=== PATIENT | male | born 1955 | race Caucasian/White ===

== ENCOUNTER 2020-04-24 17:25 | Emergency (ER) | payer OTHER ==
[~2020-04-24] VITALS: Ht 180.3 cm; Wt 88.9 kg
[2020-04-24 19:36] LABS: Basophils # (auto) 0.1 10 ^3/uL (0-0.2); Basophils % (auto) 0.6 % (0.0-2.0); Eosinophils # (auto) 0.1 10 ^3/uL (0-0.8); Eosinophils % (auto) 1.1 % (0.0-7.0); Hematocrit 46.3 % (41.0-53.0); Lymphocytes # (auto) 2.5 10 ^3/uL (0.4-5.4); Lymphocytes % (auto) 20.8 % (10.0-50.0); Mean Corpuscular Hemoglobin 30.8 pg (28.0-32.0); Mean Corpuscular Hgb Conc. 34.7 g/dL (32.0-36.0); Mean Corpuscular Volume 88.8 fL (80.0-100.0); Monocytes % (auto) 8.3 % (0.0-12.0); Neutrophils # (auto) 8.3 10 ^3/uL (1.6-8.6); Neutrophils % (auto) 69.2 % (37.0-80.0); Nucleated Red Blood Cells % 0.2 %; Platelet Count (auto) 226 10^3/uL (140-450); Red Blood Cells 5.21 10^6/uL (4.5-5.90); Red Cell Distribution Width 13.4 % (11.8-14.3)
[2020-04-24 20:06] LABS: Chloride 108 mmol/L (98-107); Sodium 139 mmol/L (136-145)
[2020-04-24 20:16] LABS: Alanine Aminotransferase 25 U/L (16-61); Albumin 3.6 g/dL (3.4-5.0); Alkaline Phosphatase 114 U/L (45-117); Anion Gap 2 (5-15); Aspartate Aminotransferase 19 U/L (15-37); BUN/Creatinine Ratio 18.9; Bilirubin, Total 0.3 mg/dL (0.2-1.0); Blood Urea Nitrogen 31 mg/dL (7-18); Calcium 8.5 mg/dL (8.5-10.1); Carbon Dioxide 29 mmol/L (21-32); GFR African American 55 mL/min; GFR Non-African American 45 mL/min; Glucose 108 mg/dL (74-106); Total Protein 7.6 g/dL (6.4-8.2)
[2020-04-25 05:30] VITALS: BP 102/69
[2020-04-25] MEDS ORDERED: FUROSEMIDE 20 MG/2 ML VIAL IV ONE (08:00)
[2020-04-25] MEDS ORDERED: FUROSEMIDE 40 MG TAB ONE (08:11)
[2020-04-25] MEDS ORDERED: FUROSEMIDE 20 MG TAB PO ONE (08:15)
[2020-04-25 08:19] LABS: Urine Bacteria NONE SEEN /hpf (None Seen); Urine Blood Negative /uL (Negative); Urine Specific Gravity 1.029 (1.001-1.035); Urine WBC <1 /hpf (0 - 3)
== END 2020-04-25 08:23 | disposition home or self-care (01) ==
LOC: EDBD 17:28 → ER 17:28
DX: R60.0 Localized edema (principal); N28.9 Disorder of kidney and ureter, unspecified; F17.210 Nicotine dependence, cigarettes, uncomplicated
CPT/HCPCS: 36415; 71046; 80053; 81001; 83880; 84484; 85025; 93005

== ENCOUNTER 2024-12-20 15:09 | Emergency (ER) | payer OTHER ==
[~2024-12-20] VITALS: Ht 180.3 cm; Wt 82.4 kg
[2024-12-20] MEDS: IPRATROPIUM BROM 0.5 MG/2.5ML INH SOL NEB ONE (16:44)
[2024-12-20] MEDS: ALBUTEROL SULF 2.5 MG/0.5ML(0.5%) NEB SOLN NEB ONE (16:44)
[2024-12-20 17:14] VITALS: BP 132/76; PULSE 90; TEMP 98.1
[2024-12-20 17:16] VITALS: RESP 18; O2SAT 94
--- NOTE | 2024-12-20 17:40 | ED.PDOC ---
SOB-HPI HPI Comments 68 y.o male presents to the ED for a chief complaint of SOB that has been ongoing since August 2024 and is now associated with new onset productive cough and phlegm. Patient denies any respiratory illness. Patient's SPO2 read 96%RA. He denies any medical history. Vital signs were stable on arrival. Patient appears to be in poor overall health, but does not look acutely toxic. Chief Complaint: Shortness of Breath Time Seen by MD: 17:30 Primary Care Provider: NONE Reviewed notes: Nurses Notes, Medications, Allergies Information Source: Patient Mode of Arrival: Ambulatory Severity: Moderate Timing: Months Duration: Since onset Context: At Rest PE Risk Factors: None History of: None Prehospital treatment: None Modifying Factors: Nothing Associated Signs and Symptoms: Cough Quality: Tightness If cough with SOB: Productive Past Medical History PAST MEDICAL HISTORY: Denies Surgical History: PTCA Family History Family History: Reviewed,noncontributory to illness Social History Smoker: Cigarettes, Less Than 1 Pack/Day Alcohol: Denies ETOH Use Drugs: Denies Drug Use Lives In: Homeless Constitutional: denies: chills, diaphoresis, fatigue, fever, malaise, sweats, weakness, others EENTM: denies: blurred vision, double vision, ear bleeding, ear discharge, ear drainage, ear pain, ear ringing, eye pain, eye redness, hearing loss, mouth pain, mouth swelling, nasal discharge, nose bleeding, nose congestion, nose pain, photophobia, tearing, throat pain, throat swelling, voice changes, others Respiratory: reports: cough, SOB at rest, shortness of breath, SOB with excertion; denies: hemoptysis, orthopnea, stridor, wheezing, others Cardiovascular: denies: chest pain, dizzy spells, diaphoresis, Dyspnea on exertion, edema, irregular heart beat, left arm pain, lightheadedness, palpita tions, PND, syncope, others Gastrointestinal: denies: abdomen distended, abdominal pain, blood streaked shahla wels, constipated, diarrhea, dysphagia, difficulty swallowing, hematemesis, melena, nausea, poor appetite, poor fluid intake, rectal bleeding, rectal pain, vomiting, others Genitourinary: denies: burning, dysuria, flank pain, frequency, hematuria, incontinence, penile discharge, penile sore, pain, testicle pain, testicle swelling, urgency, others Neurological: denies: dizziness, fainting, headache, left sided numbness, left sided weakness, numbness, paresthesia, pre-existing deficit, right sided numbness, right sided weakness, seizure, speech problems, tingling, tremors, weakness, others Musculoskeletal: denies: back pain, gout, joint pain, joint swelling, muscle pain, muscle stiffness, neck pain, others Integumetry: denies: bruises, change in color, change in hair/nails, dryness, laceration, lesions, lumps, rash, wounds, others Allergic/Immunocompromised: denies: Difficulty Healing, Frequent Infections, Hives, Itching, others Hematologic/Lymphatic: denies: anemia, blood clots, easy bleeding, easy bruisin g, swollen glands, others Endocrine: denies: excessive hunger, excessive sweating, excessive thirst, excessive urination, flushing, intolerance to cold, intolerance to heat, unexplained weight gain, unexplained weight loss, others Psychiatric: denies: anxiety, bipolar disorder, depression, hopeless, panic disorder, schizophrenia, sleepless, suicidal, others All Other Systems: Reviewed and Negative Physical Exam General Appearance: Moderate Distress (Mief-ap-oazhwpst distress due to shortness a breath concerns.), Normal HEENT: Normal ENT Inspection, Pharynx Normal, TMs Normal Neck: Full Range of Motion, Non-Tender, Normal, Normal Inspection Respiratory: Other (Patchy wheezing and mild rhonchi appreciated right middle and left upper lobe.) Cardiovascular: No Edema, No JVD, No Murmur, No Gallop, Normal Peripheral Pulses, Regular Rate/Rhythm Breast Exam: Deferred Gastrointestinal: No Organomegaly, Non Tender, No Pulsatile Mass, Normal Bowel Sounds, Soft Genitalia: Deferred Pelvic: Deferred Rectal: Deferred Extremities: No calf tenderness, Normal capillary refill, Normal inspection, Normal range of motion, Non-tender, No pedal edema Neurologic: Alert Cerebellar Function: NOT DONE Reflexes: NOT DONE Skin: Dry, Normal Color, Warm Lymphatic: No Adenopathy Was a procedure done? Was a procedure done?: No Differential Dx Differential Diagnosis: Asthma, Bronchitis, COPD, Respiratory Distress, URI X-Ray, Labs, Meds, VS Vital Signs Date Time Temp Pulse Resp B/P (MAP) Pulse Ox O2 Delivery O2 Flow Rate FiO2 12/20/24 17:16 18 Room Air 0 12/20/24 17:16 94 Room Air* 0 21 12/20/24 17:14 98.1 90 18 132/76 (94) 94 98.1 12/20/24 16:46 18 95 Room Air* 0 21 12/20/24 15:18 93 12/20/24 15:13 98.1 100 18 127/63 96 98.1 Current Medications Medications (Trade) Dose Ordered Sig/Rosemarie Route Start Time Stop Time Status Last Admin Albuterol (Ventolin Medneb) 5 mg ONCE ONCE NEB 12/20/24 16:45 12/20/24 16:46 DC 12/20/24 16:44 Ipratropium Sigel (Atrovent Medneb) 0.5 mg ONCE ONCE NEB 12/20/24 16:45 12/20/24 16:46 DC 12/20/24 16:44 Dexamethasone Sodium Phosphate (Decadron Injection) 10 mg ONCE ONCE IM 12/20/24 16:45 12/20/24 16:46 DC 12/20/24 17:14 X-Ray, Labs, Meds, VS Comment All studies performed the ED were evaluated by me personally. Imaging studies o f the chest were unremarkable for any consolidation or intrapulmonary concerns. Based on auscultation of the lungs and patient's discussion, patient may have a history of asthma or developing COPD. Advised patient utilize inhaler as needed and follow up with the primary care provider for outpatient evaluation. Patient responded well to medication dispensed. Time of 1ST Reevaluation: 18:37 Reevaluation 1ST: Improved Consultation: PCP Patient Education/Counseling: Diagnosis, Treatment, Prognosis Family Education/Counseling: Diagnosis, Treatment, No Family Present SEPSIS Sepsis Screen Date sepsis recognized/suspect: Dec 20, 2024 Time Sepsis recognized/suspect: 151 Recent Procedure: No On Antibiotic Therapy: No Respiratory Rate >20: No Heart Rate >90: Yes Temp<36 C (96.8 F) or >38.3 C: No SBP <90 or MAP <65 mmHG: No New Acute Mental Status Change: No Is the patient on CPAP, BIPAP,: No Physician Orders Electrocardigram (12/20/24 15:39) Chest Portable (12/20/24 16:36) Vital Signs Date Time Temp Pulse Resp B/P (MAP) Pulse Ox O2 Delivery O2 Flow Rate FiO2 12/20/24 17:16 18 Room Air 0 12/20/24 17:16 94 Room Air* 0 21 12/20/24 17:14 98.1 90 18 132/76 (94) 94 98.1 12/20/24 16:46 18 95 Room Air* 0 21 12/20/24 15:18 93 12/20/24 15:13 98.1 100 18 127/63 96 98.1 Medications Medications Dose Ordered Sig/Rosemarie Route Start Time Stop Time Status Last Admin Dose Admin Albuterol 5 mg ONCE ONCE NEB 12/20/24 16:45 12/20/24 16:46 DC 12/20/24 16:44 Dexamethasone Sodium Phosphate 10 mg ONCE ONCE IM 12/20/24 16:45 12/20/24 16:46 DC 12/20/24 17:14 Ipratropium Sigel 0.5 mg ONCE ONCE NEB 12/20/24 16:45 12/20/24 16:46 DC 12/20/24 16:44 Departure 1 Departure Time of Disposition: 18:37 Impression: Primary Impression: Bronchitis Disposition: 01 HOME / SELF CARE / HOMELESS Condition: Stable Additional Instructions: Advised patient utilize inhaler as needed and additionally, patient should follow up with his primary care provider for discussions related to possible developing asthma or COPD concerns. e-Prescriptions Albuterol Sulfate (Albuterol Sulfate Hfa) 108 Mcg/Act Aer 108 MCG IN Q4HP PRN, #1 AER Prov: KIM MARES PAC 12/20/24 Discharged With: Self Critical Care Note Critical Care Time?: No Stability Stability form required: No I personally scribed for KIM MARES PAC ([email or web address]) on 12/20/24 at 17:40. Electronically submitted by Myah Herrera ([facility]). KIM MARES PAC Dec 20, 2024 17:40
--- NOTE | 2024-12-20 17:47 | DVH ---
CHEST RADIOGRAPH Indication: Shortness of breath Technique: Single frontal view of the chest was obtained Comparison: 04/24/2020 FINDINGS: Lines and Tubes: None Lungs: No focal consolidation. Pleura: No effusion. No pneumothorax. Cardiomediastinal contours: Unremarkable Bones: No acute osseous abnormality. IMPRESSION: 1. No acute cardiopulmonary disease. 2. No significant change from 04/24/2020.
[2024-12-20] MEDS ORDERED: ALBU108A5 IN (18:38)
--- NOTE | 2024-12-21 06:49 | ECG ---
[facility] Test Date: 2024-12-20 Test Time: 15:17:26 Pat Name: KARISSA RODRIGUEZ Department: [facility] ED Patient ID: [id number] Room: Gender: M Deputy County Clerk: anette : [id number] Requested By: EMERGENCY EMERGENCY Order Number: [id number] Reading MD: Measurements Intervals [place] Rate: 93 P: 76 [place]: 134 QRS: 71 QRSD: 85 T: 77 QT: 378 QTc: 471 Interpretive Statements Sinus arrhythmia Baseline wander in lead(s) V1 Please click the below link to view image of tracing.
== END 2024-12-20 18:42 | disposition home or self-care (01) ==
LOC: ER 15:12
DX: J40 Bronchitis, not specified as acute or chronic (principal); F17.210 Nicotine dependence, cigarettes, uncomplicated; Z59.00 Homelessness unspecified; Z79.899 Other long term (current) drug therapy
CPT/HCPCS: 71045; 93005; 94640; 96372; 99283; J1100